=== PATIENT | male | born 1950 | race Caucasian/White ===

== ENCOUNTER → 2016-09-08 | Outpatient (CLI) | payer BC ==
[2016-09-08 10:32] LABS: Blood Urea Nitrogen 16 mg/dL (9-20); Non-African American GFR(MDRD) >60 (>60 ml/min/1.73 sqM)
--- NOTE | 2016-09-08 12:19 | CT ---
CT angiogram thoracic and abdominal aorta HISTORY: Thoracic aneurysm without rupture Helical acquisition obtained through the aorta both pre and during dynamic administration 100 cc Omni 350 IV, three-dimensional reconstructions performed on the workstation and exam is correlated to lianne or CT angiogram of the chest 24 September 2015 Superior aortic branch vessels are patent, 3 vessel arch is present. Ascending aorta measures approxi mately 3.6 cm at the root, 4.1 cm at the a sending aorta, proximal descending aorta 3.0 cm, aorta at the level of the hiatus is 2.8 cm, infrarenal abdominal aorta measures approximately 2 cm. Common mj ac arteries are not aneurysmal but are patent, internal and external iliac arteries are patent proxim ally. The inferior mesenteric artery, superior mesenteric artery, celiac axis, renal arteries are pat ent. Pneumobilia is present within the liver. Patient is post cholecystectomy. Diverticular change in colo n. IMPRESSION: Thoracic aortic aneurysm as described.
== END | disposition home or self-care (01) ==
LOC: RADCTMAIN 09:54
PROVIDERS: ATTEND Internal Medicine Interventional Cardiology
DX: I71.2 Thoracic aortic aneurysm, without rupture (principal)
CPT/HCPCS: 82565; 84520; 75635; 71275; 36415; Q9967

== ENCOUNTER → 2017-09-16 | Outpatient (CLI) | payer BC ==
[2017-09-16 18:41] LABS: Iron Saturation 30.99 (15.00-50.00)
[2017-09-17 13:58] LABS: IgG Subclass 3 21.8 mg/dL (11.0-85.0)
[2017-09-19 14:02] LABS: Smooth Muscle Antibody 10 UNITS (<20)
[2017-09-20 12:21] LABS: Alpha 1 Anti-Trypsin 145 mg/dL (90 - 200)
== END | disposition home or self-care (01) ==
LOC: LABWHC1 12:13
PROVIDERS: ATTEND Internal Medicine
DX: K21.9 Gastro-esophageal reflux disease without esophagitis (principal); R10.13 Epigastric pain; R74.0 Nonspecific elevation of levels of transaminase and lactic acid dehydrogenase [LDH]
CPT/HCPCS: 36415; 82103; 82104; 82728; 82787; 83516; 83540; 83550; 86038

== ENCOUNTER → 2017-09-21 | Outpatient (CLI) | payer BC ==
--- NOTE | 2017-09-21 12:05 | CT ---
EXAMINATION TYPE: CT angio chest DATE OF EXAM: 09/21/2017 COMPARISON: CTA aorta September 08, 2016 HISTORY: Follow up to thoracic aneurysm CT DLP: 311.3 mGycm. Automated Exposure Control for Dose Reduction was Utilized. CONTRAST: CTA scan of the thorax is performed with IV Contrast, patient injected with 100 mL of Omnipaque 350, pulmonary embolism protocol. Three-D reconstructed images are created on independent workstation and reviewed. FINDINGS: LUNGS: Mild to moderate biapical pleural/parenchymal scarring is redemonstrated. There is dependent a telectasis in both lower lobes. There is no suspicious nodule or mass. There is no pleural effusion o r pneumothorax seen bilaterally. MEDIASTINUM: There is satisfactory enhancement of the pulmonary artery and its branches, there is no CT evidence for central pulmonary embolism. There are no greater than 1 cm hilar or mediastinal lymp h nodes. Stable prominent but subcentimeter right hilar lymph node axial image 35. No significant pe ricardial effusion is seen. Heart size is stable and upper limits of normal. Ascending aorta measures up to 3.9 cm in diameter felt stable from prior. There is mild plaque in the descending aorta. There is patent three-vessel from the aortic arch with mild noncalcified plaque at origin of left subclavi an artery. There is patent celiac access, SMA, bilateral single renal arteries without significant pl aque or stenosis. OTHER: Cholecystectomy clips are redemonstrated. Central pneumobilia is again seen. Mild to moderate multilevel spurring in the lower thoracic spine is redemonstrated. IMPRESSION: Stable borderline 3.9 cm aneurysm of ascending aorta.
== END | disposition home or self-care (01) ==
LOC: RADCTMAIN 11:01
PROVIDERS: ATTEND Internal Medicine Interventional Cardiology
DX: I71.2 Thoracic aortic aneurysm, without rupture (principal)
CPT/HCPCS: 71275; Q9967

== ENCOUNTER → 2018-10-16 | Outpatient (CLI) | payer BC ==
[2018-10-16 09:30] LABS: Blood Urea Nitrogen 15 mg/dL (9-20)
--- NOTE | 2018-10-16 11:13 | CT ---
EXAMINATION TYPE: CT angio chest DATE OF EXAM: 10/16/2018 COMPARISON: Prior CT chest 09/21/2017 HISTORY: Thoracic aneurysm CT DLP: 526.4 mGycm Automated exposure control for dose reduction was used. CONTRAST: CTA scan of the thorax is performed without and with IV Contrast, patient injected with 100 mL of Iso leighann 300, pulmonary embolism protocol. MIP images are created and reviewed. 3D reconstructed images are created on an independent workstation and reviewed. FINDINGS: LUNGS: The lungs are grossly clear, there is no concerning parenchymal mass or nodule identified. T here is no pleural effusion or pneumothorax seen. The tracheobronchial tree is patent. AORTA: No additional significant interval change is seen. Aorta measures approximately 3.9 cm proxim al ascending level, calcifications are present at the aortic valve leaflet level. Proximal descending aorta measures approximately 3.2 cm slightly increased from prior 2.9 cm. At that diaphragmatic hiat us aorta measures 2.3 cm. MEDIASTINUM: There is satisfactory enhancement of the pulmonary artery and its branches, there is no CT evidence for pulmonary embolism. There are no greater than 1 cm hilar or mediastinal lymph nodes. No pericardial effusion is seen. OTHER: There is some pneumobilia present, patient is post cholecystectomy. IMPRESSION: AORTIC MEASUREMENTS DESCRIBED. PNEUMOBILIA. ADDITIONAL FINDINGS ABOVE.
== END | disposition home or self-care (01) ==
LOC: RADCTMAIN 08:52
PROVIDERS: ATTEND Internal Medicine Interventional Cardiology
DX: I71.2 Thoracic aortic aneurysm, without rupture (principal)
CPT/HCPCS: 82565; 84520; 71275; 36415; Q9967

== ENCOUNTER → 2020-11-17 | Outpatient (CLI) | payer BC ==
[2020-11-17 14:42] LABS: African American GFR (CKD) >90 (>60 ml/min/1.73 sqM); Blood Urea Nitrogen 15 mg/dL (9-20); Non-African American GFR(CKD) 88 (>60 ml/min/1.73 sqM)
--- NOTE | 2020-11-17 15:25 | CT ---
EXAMINATION TYPE: CT angio chest DATE OF EXAM: 11/17/2020 COMPARISON: 10/16/2018 HISTORY: Thoracic aortic aneurysm without rupture CT DLP: 338 mGycm CONTRAST: CTA thoracic aorta with 3-D reconstruction is performed and with IV Contrast, patient injected with 1 00 mL of Isovue 370. Contrast CTA of the thoracic aorta was performed from the lung apex through the upper abdomen. 3D re construction imaging obtained at a separate workstation. CT Chest: THORACIC AORTA: Ascending thoracic aortic aneurysm measures 4.0 cm in AP dimension versus 3.9 cm prev iously. The aortic arch and descending thoracic aorta are of normal caliber. Mild atheromatous change s seen. There is no evidence for dissection or periaortic collection. LUNGS: The lungs are clear and free of infiltrate or atelectasis. No pulmonary nodule or mass is det ected. No pleural effusion or CT evidence of interstitial lung disease. MEDIASTINUM: No evidence for mediastinal hematoma. The heart is not enlarged. No evidence for med iastinal mass or adenopathy. HILAR STRUCTURES: No evidence for mass. No hilar adenopathy is appreciated. OTHER: There is evidence of pneumobilia. Cholecystectomy clips are noted. IMPRESSION- Ascending thoracic aortic aneurysm measures 4.0 cm in AP dimension versus 3.9 cm previously.
== END | disposition home or self-care (01) ==
LOC: RADCTMAIN 13:49
PROVIDERS: ATTEND Internal Medicine Interventional Cardiology
DX: I71.2 Thoracic aortic aneurysm, without rupture (principal)
CPT/HCPCS: 82565; 84520; 71275; 36415; Q9967

== ENCOUNTER → 2021-07-15 | Outpatient (CLI) | payer BC ==
[2021-07-15 15:52] LABS: African American GFR (CKD) 86.1 (60.0-200.0); Albumin 4.6 g/dL (3.8-4.9); Albumin/Globulin Ratio 2.2 (1.60-3.17); BUN/Creat Ratio 14.08 Ratio (12.00-20.00); Blood Urea Nitrogen 14.5 mg/dL (9.0-27.0); Calcium 9.9 mg/dL (8.7-10.3); Carbon Dioxide 24.6 mmol/L (20.0-27.5); Globulin 2.1 g/dL (1.6-3.3); Non-African American GFR(CKD) 74.3 (60.0-200.0); Potassium 3.8 mmol/L (3.5-5.5); Total Bilirubin 0.6 mg/dL (0.30-1.20); Total Protein 6.7 g/dL (6.2-8.2)
== END | disposition home or self-care (01) ==
LOC: LABWHC1 09:11
PROVIDERS: ATTEND Internal Medicine Interventional Cardiology
DX: R06.02 Shortness of breath (principal)
CPT/HCPCS: 36415; 80053; 83880

== ENCOUNTER 2022-05-28 08:42 | Day surgery (SDC) | payer BC ==
[2022-05-27 08:39] VITALS: BMI 23.7
[~2022-05-28 08:42] MED LIST: LACTATED RINGERS 1,000 ML IV SCH
[2022-05-28 09:54] VITALS: TEMP 97
[2022-05-28] MEDS ORDERED: PROPOFOL 10 MG/ML 20 ML VIAL IV ONE (10:26)
--- NOTE | 2022-05-28 10:48 | P.PCN ---
Date of Procedure: 05/28/22 Procedure(s) Performed: BRIEF HISTORY: Patient is a 71-year-old pleasant white male scheduled for an elective colonoscopy as a part of evaluation of prior history of colon polyps and family history of colon cancer. His mother and brother was diagnosed with colon cancer at age 70 and 60 respectively. His last colonoscopy was 5 years ago. PROCEDURE PERFORMED: Colonoscopy with biopsy. PREOPERATIVE DIAGNOSIS: History of colon polyps and family history of colon cancer. IV sedation per Anesthesia. PROCEDURE: After informed consent was obtained, the patient, was brought into the endoscopy unit. IV sedation was administered by Anesthesia under continuous monitoring. Digital rectal examination was normal. Initially the Olympus CF-160 flexible video colonoscope was then inserted in the rectum, gradually advanced into the cecum without any difficulty. Careful examination was performed as the scope was gradually being withdrawn. Ileocecal valve and the appendiceal orifice were visualized and appeared normal. Prep was fair.. Mucosa of the cecum, appeared normal. On the ileocecal valve was a 3 mm polyp that was removed by cold biopsy. Rest of the ascending colon, transverse colon, descending colon, sigmoid colon, and rectum appeared normal. In the sigmoid colon there was a 5 limited polyp removed by cold biopsy. Scattered sigmoid diverticulosis seen. Retroflexion was performed in the rectum and no lesions were seen. The patient tolerated the procedure well. IMPRESSION: 3 mm polyp on the ileocecal valve status post cold biopsy 5 mm; sigmoid polyp status post cold biopsy Scattered sigmoid diverticulosis RECOMMENDATIONS: Findings of this examination were discussed with the patient as well as his family. He was advised to follow with the biopsy results and have a repeat colonoscopy in 5 years because of the family history of colon cancer
[2022-05-28 11:08] VITALS: BP 137/78; PULSE 77; RESP 18
== END 2022-05-28 11:44 | disposition home or self-care (01) ==
LOC: ORWHC2ENDO 08:42
PROVIDERS: ATTEND Internal Medicine Gastroenterology
DX: Z12.11 Encounter for screening for malignant neoplasm of colon (principal); K63.5 Polyp of colon; K57.30 Diverticulosis of large intestine without perforation or abscess without bleeding; I10 Essential (primary) hypertension; E78.5 Hyperlipidemia, unspecified; I35.1 Nonrheumatic aortic (valve) insufficiency; K21.9 Gastro-esophageal reflux disease without esophagitis; Z86.010 Personal history of colon polyps; Z80.0 Family history of malignant neoplasm of digestive organs; Z88.6 Allergy status to analgesic agent; Z79.02 Long term (current) use of antithrombotics/antiplatelets; Z79.811 Long term (current) use of aromatase inhibitors; Z79.899 Other long term (current) drug therapy
CPT/HCPCS: 88305; 45380; J2704

== ENCOUNTER → 2023-07-15 | Outpatient (CLI) | payer BC ==
[2023-07-15 11:07] LABS: African American GFR (CKD) >90 (>60 ml/min/1.73 sqM); Blood Urea Nitrogen 22 mg/dL (9-20); Non-African American GFR(CKD) 89 (>60 ml/min/1.73 sqM)
--- NOTE | 2023-07-15 12:16 | CT ---
Exam: CT Angiography of the Chest. Date: 07/15/2023. Comparison: 11/17/2020. History: Thoracic aortic aneurysm without rupture. Technique: CT examination of the chest was performed without and following the intravenous administra tion of 100 mL of Isovue-370. CT dose lowering techniques were used, to include: automated exposure c ontrol, adjustment for patient size, and/or use of iterative reconstruction. FINDINGS: Mediastinum and Veronica: There is no axillary, mediastinal or hilar lymphadenopathy. Pleural and Pericardial spaces: There are no pleural or pericardial effusions. Upper Abdomen: Pneumobilia seen throughout the liver and common bile duct which likely relates to the patient's prior cholecystectomy and is unchanged. Small hiatal hernia. The visualized upper abdomen otherwise appears unremarkable. Cardiovascular: Mild dilation of the ascending thoracic aorta to 4.2 cm is unchanged. Mild vascular c alcification is otherwise seen throughout the thoracic aorta without evidence of dissection. Pulmonary Artery: There are no filling defects in the pulmonary arteries. Lung Parenchyma and Airways: There is a 7.6 mm nodule in the right lower lobe on series 4 image 33 wh ich is new since the previous examination. Bones: No fracture or aggressive osseous lesion. IMPRESSION: 1. Unchanged dilation of the ascending thoracic aorta up to 4.2 cm. 2. No evidence of aortic dissection. 3. New 7.6 mm right lower lobe pulmonary nodule. Malignancy would be in the differential diagnosis. T his may be too small for PET CT at this time, however a PET/CT should be considered. Otherwise, follo w-up in 3 months is recommended.
== END | disposition home or self-care (01) ==
LOC: RADCTMAIN 10:03
PROVIDERS: ATTEND Internal Medicine Interventional Cardiology
DX: I71.21 Aneurysm of the ascending aorta, without rupture (principal); R91.1 Solitary pulmonary nodule
CPT/HCPCS: 82565; 84520; 71275; 36415; Q9967

== ENCOUNTER → 2023-09-01 | Outpatient (CLI) | payer BC ==
--- NOTE | 2023-09-02 15:10 | PE ---
EXAMINATION TYPE: PET CT fusion skull to thigh DATE OF EXAM: 09/01/2023 CLINICAL INDICATION:Male, 72 years old with history of R91.1 LUNG NODULE; TECHNIQUE: Following the intravenous administration of 10.9 mCi of F-18 FDG, whole body images are performed from the skull base to the midthigh. Images are reviewed on the computer in the coronal, a xial, and sagittal planes. Reconstructed rotating images are created on independent workstation and reviewed on the computer. A non-contrast CT is performed in conjunction with the PET scan. Glucose level 117 mg/dL CT DLP: 455 mGycm, Automated exposure control for dose reduction was used. COMPARISON: CT 07/15/2023, PET/CT None, FINDINGS: Mediastinal SUV mean is 1.9. Hepatic parenchyma SUV mean is 3.1. SKULL BASE AND NECK: No suspicious radiotracer activity. CHEST, MEDIASTINUM, AND HILAR REGION: * FDG avid lymph nodes in the right hilar region measuring Max SUV 5.4, measurements are difficult w ithout IV contrast. * FDG avid lymph node in the subcarinal region max SUV 0.7 measuring 6 mm in short axis. ABDOMEN AND PELVIS: No suspicious radiotracer activity. MUSCULOSKELETAL STRUCTURES: No suspicious radiotracer activity. OTHER CT: Atherosclerosis of the arterial vasculature. Calcification of aortic valve leaflets. Pneumo bilia. Cholecystectomy changes. Scattered colonic diverticula. Fat-containing umbilical hernia. The a ppendix is normal. This mildly enlarged for size. IMPRESSION: There is abnormal FDG activity within the right pulmonary hilum lymph node and subcarinal lymph node. Which is suspicious but not definitive for malignancy. Close surveillance is recommended. These lymp h nodes are not seen on prior exams in 2020 and beyond. No definitive uptake within the right lower l obe pulmonary nodule which can be due to some motion artifact on this exam.
== END | disposition home or self-care (01) ==
LOC: RADPETMAIN 07:09
PROVIDERS: ATTEND Internal Medicine Critical Care Medicine
DX: R91.1 Solitary pulmonary nodule (principal)
CPT/HCPCS: 78815; A9552

== ENCOUNTER → 2024-01-10 | Outpatient (CLI) | payer MEDICARE ==
[2024-01-10 10:58] LABS: African American GFR (CKD) >90 (>60 ml/min/1.73 sqM); Blood Urea Nitrogen 14 mg/dL (9-20); Non-African American GFR(CKD) 89 (>60 ml/min/1.73 sqM)
--- NOTE | 2024-01-15 13:17 | CT ---
EXAMINATION TYPE: CT chest w con DATE OF EXAM: 01/10/2024 COMPARISON: 07/15/2023, PET/CT 09/01/2023 HISTORY: SOLITARY PULMONARY NODULE CT DLP: 537 mGycm, Automated exposure control for dose reduction was used. CONTRAST: Performed injected with 100ml mL of Isovue 300. TECHNIQUE: Axial images were obtained at 5 mm thick sections. Reconstructed images are reviewed on [employer] computer in the coronal plane. FINDINGS: Portion of the thyroid visualized is normal. There is a 0.8 cm nodule posterior right midlung. Series 4 image 36. This is stable Right hilar lymph node is present measuring 1.1 cm, stable. 1.0 cm pretracheal lymph node is stable. The ascending aorta diameter at the level of the main pulmonary artery is 4.1 cm. The main pulmonar y artery diameter at the bifurcation is 2.[address] sections are obtained through the upper abdomen. There is mild fatty infiltration liver wi th some biliary air is present. IMPRESSION: 1. Stable solitary pulmonary nodule. 2. Stable mildly prominent mediastinal lymphadenopathy. 3. Follow-up recommended. Follow-up CT chest in 6 months could be performed. PET/CT can be performed earlier as clinically indicated.
== END | disposition home or self-care (01) ==
LOC: RADCTMAIN 10:11
PROVIDERS: ATTEND Internal Medicine Critical Care Medicine
DX: R91.1 Solitary pulmonary nodule (principal); R59.0 Localized enlarged lymph nodes
CPT/HCPCS: 82565; 84520; 71260; 36415; Q9967

== ENCOUNTER → 2024-07-23 | Outpatient (CLI) | payer MEDICARE ==
[2024-07-23 08:51] LABS: African American GFR (CKD) >90 (>60 ml/min/1.73 sqM); Blood Urea Nitrogen 13 mg/dL (9-20); Non-African American GFR(CKD) 88 (>60 ml/min/1.73 sqM)
--- NOTE | 2024-07-23 10:51 | CT ---
EXAMINATION TYPE: CT chest w con DATE OF EXAM: 07/23/2024 9:06 AM COMPARISON: 01/10/2024, 09/01/2023 CLINICAL INDICATION: Male, 73 years old with history of R91.1 SPN; PHH, lung nodule TECHNIQUE: Multiple axial images were obtained through the chest. Sagittal and coronal reformats were created for review. MIP was performed on a separate workstation. Contrast used:100 mL of Isovue 300 with IV Contrast (None if empty) Oral contrast used: (None if empty) CT DLP: 527 mGycm, Automated exposure control for dose reduction was used. FINDINGS: LUNGS/ PLEURA: No focal consolidation, pneumothorax or pleural effusion. Stable right lower lobe sup erior segment pulmonary nodule measuring 7 mm series 3 image 31. AIRWAY: Patent and unremarkable. HEART: Size within normal limits. Aortic valve consultations and mild coronary artery calcifications. MEDIASTINUM: No gross evidence of adenopathy. No enlarging right pulmonary hilar lymph nodes identifi ed. VASCULATURE: No aortic aneurysm. MUSCULOSKELETAL: No acute osseous abnormalities SOFT TISSUES/LYMPH NODES: Unremarkable. LOWER NECK: No significant findings. UPPER ABDOMEN: The gallbladder surgically absent with central pneumobilia present. IMPRESSION: 1. Stable right pulmonary hilum no new or enlarging pulmonary nodules or lymph nodes. 2. Stable right lower lobe superior segment pulmonary nodule measuring 7 mm dating back to at least 07/15/2023. [facility], , 07/23/2024 10:49 AM
== END | disposition home or self-care (01) ==
LOC: RADCTMAIN 08:10
PROVIDERS: ATTEND Internal Medicine Critical Care Medicine
DX: R91.1 Solitary pulmonary nodule (principal)
CPT/HCPCS: 82565; 84520; 71260; 36415; Q9967